=== PATIENT | female | born 1960 | race Caucasian/White ===

== ENCOUNTER 2017-04-08 11:24 | Emergency (ER) | payer MEDICAID, OTHER ==
[~2017-04-08] VITALS: Ht 162.6 cm; Wt 84.4 kg
--- NOTE | 2017-04-08 11:44 | ED Hip Pain/Injury ---
General Chief Complaint: Hip/Pelvic Problems Stated Complaint: R HIP PAIN Nursing Triage Note: pt reports r hip pain that has gotten worse recently. Source: patient Exam Limitations: no limitations History of Present Illness Time seen by provider: 11:42 Initial Comments To ER with right anterior hip pain has been present for one month but worse for 2 days. No known injury or cause. No fevers or chills. Timing/Duration: just prior to arrival Severity: moderate Location: hip (R) Method of Injury: unknown Associated Symptoms: denies symptoms Allergies and Home Medications Allergies Coded Allergies: No Known Drug Allergies (Unverified , 04/08/17) Home Medications Amlodipine Besylate 10 Mg Tablet, 10 MG PO DAILY, (Reported) Atorvastatin Calcium 80 Mg Tablet, 80 MG PO DAILY, (Reported) Calcium Carbonate/Vitamin D3 1 Each Tablet, 1 EACH PO BID, (Reported) Dicyclomine HCl 10 Mg Capsule, 10 MG PO TID, (Reported) Ferrous Sulfate 325 Mg Tablet, 325 MG PO DAILY, (Reported) Hydroxyzine HCl 25 Mg Tablet, 25 MG PO TID PRN for ANXIETY, (Reported) Levothyroxine Sodium 0.5 Gm Powder, 0.05 MG PO DAILY, (Reported) Omeprazole 20 Mg Capsule.dr, 20 MG PO BID, (Reported) Constitutional: see HPI EENTM: see HPI Respiratory: no symptoms reported Cardiovascular: no symptoms reported Genitourinary: no symptoms reported Musculoskeletal: see HPI Skin: no symptoms reported Psychiatric/Neurological: No Symptoms Reported Past Hupxbfr-Ybmzug-Ovhkod Hx Patient Social History Alcohol Use: Denies Use Recreational Drug Use: No Smoking Status: Current Everyday Smoker Type Used: Cigarettes Recent Foreign Travel: No Contact w/Someone Who Travel: No Recent Infectious Disease Expo: No Surgeries Surgeries: Gallbladder, Hysterectomy, Tonsillectomy Cardiovascular Cardiac Disorders: High Cholesterol, Hypertension Genitourinary Genitourinary Disorders: Kidney Infection, Neurogenic Bladder Endocrine Endocrine Disorders: Lupus Physical Exam Vital Signs Vital Sign - Last 12Hours 04/08/17 11:37 Temp 97.3 Pulse 70 Resp 16 B/P (MAP) 134/84 Pulse Ox 95 Capillary Refill : Less Than 3 Seconds General Appearance: No Apparent Distress, WD/WN HEENT: PERRL/EOMI, TMs Normal Neck: Full Range of Motion, Normal Inspection Respiratory: Normal Breath Sounds, No Accessory Muscle Use, No Respiratory Distress Gastrointestinal: Normal Bowel Sounds, Non Tender, Soft Extremity: Normal Capillary Refill, Normal Inspection Neurologic/Psychiatric: Alert, Oriented x3 Skin: Normal Color, Warm/Dry Progress/Results/Core Measures Results/Orders My Orders Orders - MARIA PERRY APRN Pelvis (04/08/17 11:42) Hip, Right, 2 Views (04/08/17 11:42) Vital Signs/I&O Vital Sign - Last 12Hours 04/08/17 11:37 Temp 97.3 Pulse 70 Resp 16 B/P (MAP) 134/84 Pulse Ox 95 Blood Pressure Mean: 101 Departure Impression Impression: Primary Impression: Hip osteoarthritis Disposition: HOME, SELF-CARE Condition: Stable Departure-Patient Inst. Decision time for Depature: 12:18 Referrals: TERRY GALDAMEZ MD NO,LOCAL PHYSICIAN (PCP) Primary Care Physician SAM KILPATRICK MD, ROBERT F DO ZAFUTA, MICHAEL P MD Patient Instructions: Arthritis and Exercise Add. Discharge Instructions: 1. Follow-up with one of the orthopedic surgeons to discuss further management of your right hip osteoarthritis 2. Return to ER for any concerns 3. All discharge instructions reviewed with patient and/or family. Voiced understanding. Images Extremities-Lower 1 - Tenderness MARIA PERRY APRN Apr 08, 2017 11:43
[2017-04-08] MEDS ORDERED: LEVO0.5P2 PO (11:50)
[2017-04-08] MEDS ORDERED: CALC-880 PO (11:50)
[2017-04-08] MEDS ORDERED: FERR-74 PO (11:50)
[2017-04-08] MEDS ORDERED: DICY10CA12 PO (11:50)
[2017-04-08] MEDS ORDERED: ATOR80TA76 PO (11:50)
[2017-04-08] MEDS ORDERED: HYDR-700 PO (11:50)
[2017-04-08] MEDS ORDERED: OMEP20CA12 PO (11:50)
[2017-04-08] MEDS ORDERED: AMLO10TA2 PO (11:50)
--- NOTE | 2017-04-08 11:59 | Diagnostic Imaging Report ---
INDICATION: Right hip pain. FINDINGS: AP pelvis shows SI joints and pubic symphysis to be in good alignment. Mild degenerative changes noted. The right hip shows advanced degenerative disease with loss of joint space. There is subcortical cystic change noted along the femoral head and acetabulum on the right. Left hip appears in good position and normal. Stimulator generator noted overlying the left superior iliac wing with the stimulator lead extending into the sacral foramen. IMPRESSION: Advanced osteoarthritic changes of the right hip. Dictated by: Dictated on workstation # [id number]
--- NOTE | 2017-04-08 12:06 | Diagnostic Imaging Report ---
2 views of the right hip. INDICATION: Right hip pain. FINDINGS: Severe osteoarthritic changes are demonstrated of the right hip with marked joint space loss. There is acetabular subchondral sclerosis, and there is subchondral cyst formation within the femoral head. There is no flattening of the femoral head. There is no acute fracture. The visualized portion of the pelvic ring appears intact. A sacral stimulator device is noted. IMPRESSION: Severe right hip osteoarthritic changes without evidence of acute fracture or dislocation. Dictated by: Dictated on workstation # [id number]
[2017-04-08 12:24] VITALS: BP 124/70
== END 2017-04-08 12:24 | disposition home or self-care (01) ==
LOC: EDUNIT# 11:24 → ER 11:26
DX: M16.11 Unilateral primary osteoarthritis, right hip (principal); E78.00 Pure hypercholesterolemia, unspecified; I10 Essential (primary) hypertension; N31.9 Neuromuscular dysfunction of bladder, unspecified; F17.210 Nicotine dependence, cigarettes, uncomplicated; Z90.710 Acquired absence of both cervix and uterus
CPT/HCPCS: 72170; 73502; 99283